=== PATIENT | male | born 1995 | race Caucasian/White ===

== ENCOUNTER 2023-12-03 19:38 | Emergency (ER) | payer MEDICAID ==
[~2023-12-03] VITALS: Ht 172.7 cm; Wt 65.1 kg
[2023-12-03 19:45] VITALS: BP 130/82; PULSE 97; RESP 16; TEMP 98.5; O2SAT 95
== END 2023-12-03 20:17 | disposition left against medical advice (07) ==
LOC: ER 19:38
DX: Z04.6 Encounter for general psychiatric examination, requested by authority (principal); Z53.21 Procedure and treatment not carried out due to patient leaving prior to being seen by health care provider
CPT/HCPCS: 99281

== ENCOUNTER 2025-07-28 09:32 | Emergency (ER) | payer MEDICAID ==
[~2025-07-28] VITALS: Ht 172.7 cm; Wt 79.5 kg
[2025-07-28 09:47] VITALS: BP 161/98; PULSE 87; RESP 18; TEMP 98.7; O2SAT 99
[2025-07-28] MEDS ORDERED: OLAN-40 PO (09:50)
--- NOTE | 2025-07-28 09:51 | Physician Documentation ---
HPI ~ General Chief Complaint: Medication Request Stated Complaint: MED REQUEST Time Seen by MD: 09:46 History of Present Illness HPI Comments 29-year-old male presents to the ED refer medication request. States that he is out of Zyprexa 20 mg. Takes a medication for PTSD and has been unable am unable to get an appointment with a primary. Denies any current SI or HI Medication Reconciliation Allergies: Coded Allergies: No Known Allergies (Unverified , 07/28/25) Scheduled Olanzapine (Zyprexa), 1 TAB PO HS Review of Systems All Other Systems at this time: Reviewed and Negative ROS As stated above in the HPI, otherwise all systems are reviewed and negative. Physical Exam Physical Exam Vital Signs: Temperature: 98.7, Source: Oral, Heart Rate: 87, Respiratory Rate: 18, BP: 161/98, Pulse Oximetry: 99, Weight: 79.500 Oxygen Flow Rate: 0 Physical Exam General: Alert, no apparent distress. Respiratory: Lungs clear, no respiratory distress. Chest: No accessory muscle use. Cardiovascular: Regular rate and rhythm, no murmurs. Gastrointestinal: Soft, nontender, nondistended. Bowels sounds present. Extremities: Normal range of motion, no deformity. Neurologic: Oriented x4. Psychiatric: Normal mood and affect. Skin: Normal color, warm and dry. No edema, no ecchymosis. Progress Results/Orders Results/Orders Vital Signs 07/28/25 09:47 Temp 98.7 Pulse 87 Resp 18 B/P (MAP) 161/98 Pulse Ox 99 O2 Flow Rate 0 Medical Decision Making Additional information obtaine: old records Findings Medications refilled as requested Differential Dx:Considerations: Include: Adverse circumstances, Economic, Psychosocial, Medical services unavail., Medication refill, Medication non- compliance, Other Departure Disposition: HOME / SELF CARE / HOMELESS Impression: Primary Impression: General medical exam Condition: Stable Discharge Instructions: Medicine Refill at the Emergency Department Referrals: NO PRIMARY CARE PROVIDER (PCP) Prescriptions Olanzapine (Zyprexa) 20 Mg Tablet 1 TAB PO HS for 30 Days, #30 TAB 0 Refills Prov: STAN LARES NP 07/28/25 Education Educated: Patient Educated regarding: diagnosis Signature Scribe Signature: g Attestation: Scribed for Stan Lares Levers Lace Machine Operator by Stan Sen NP . 07/28/25 16:05 STAN LARES NP Jul 28, 2025 09:51
== END 2025-07-28 10:03 | disposition home or self-care (01) ==
LOC: ER 09:32
DX: Z00.00 Encounter for general adult medical examination without abnormal findings (principal)
CPT/HCPCS: 99282

== ENCOUNTER 2025-08-04 11:15 | Emergency (ER) | payer MEDICAID ==
[~2025-08-04] VITALS: Ht 172.7 cm; Wt 86.4 kg
[~2025-08-04 11:15] MED LIST: OLAN-40 PO
[2025-08-04 11:27] VITALS: BP 131/82; PULSE 152; RESP 18; TEMP 98.5; O2SAT 99
--- NOTE | 2025-08-04 11:31 | Physician Documentation ---
History of Present Illness ~ Chief Complaint: Flu Symptoms Stated Complaint: CHEST COLD HPI Patient is a very pleasant 29-year-old male that presents to the emergency de partment for complaints of cough cold congestion x1 week. Subsequent finding of tachycardia in triage today. Patient denies fever chills nausea vomiting diarrhea chest pain or shortness of breath at this time. Medication Reconciliation Allergies: Coded Allergies: No Known Allergies (Unverified , 08/04/25) Scheduled Olanzapine (Zyprexa), 1 TAB PO HS Physical Exam Vital Signs: Temperature: 98.5, Source: Temporal, Heart Rate: 152, Respiratory Rate: 18, BP: 131/82, Pulse Oximetry: 99, Weight: 86.360 Oxygen Flow Rate: 0 Progress Results/Orders Results/Orders Vital Signs 08/04/25 11:27 Temp 98.5 Pulse 152 Resp 18 B/P (MAP) 131/82 Pulse Ox 99 O2 Flow Rate 0 Departure Referrals: NO PRIMARY CARE PROVIDER (PCP) GOGO CARRENO Aug 04, 2025 11:31
--- NOTE | 2025-08-04 11:38 | ELECTROCARDIOGRAPH REPORT ---
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
[2025-08-04 13:16] LABS: MEAN PLATELET VOLUME 10.2 FL (7.4-10.4); RED CELL DISTRIBUTION WIDTH 14.9 % (11.5-14.5)
[2025-08-04 13:28] LABS: CREATININE 0.89 MG/DL (0.60-1.10); TOTAL CARBON DIOXIDE 29.3 MMOL/L (24-32); eCRCL 120 ML/MIN; eGFR > 90 ML/MIN
== END 2025-08-04 19:36 | disposition left against medical advice (07) ==
LOC: ER 11:16
DX: R05.9 Cough, unspecified (principal); J00 Acute nasopharyngitis [common cold]; R68.89 Other general symptoms and signs; R00.0 Tachycardia, unspecified; Z79.899 Other long term (current) drug therapy; Z53.21 Procedure and treatment not carried out due to patient leaving prior to being seen by health care provider
CPT/HCPCS: 36415; 80053; 84484; 85025; 93005; 99281

== ENCOUNTER 2025-08-21 13:26 | Emergency (ER) | payer MEDICAID ==
[~2025-08-21] VITALS: Ht 172.7 cm; Wt 81.6 kg
--- NOTE | 2025-08-21 15:40 | RADIOLOGY REPORT ---
CHEST RADIOGRAPH REASON FOR EXAM: Productive cough x3 weeks. COMPARISON: None TECHNIQUE: One view of the chest is provided FINDINGS: The cardiomediastinal silhouette is within normal limits for technique. There is no focal airspace disease. There is no significant pleural effusion. No acute bony abnormality is identified. IMPRESSION: No radiographic evidence of acute cardiopulmonary process.
[2025-08-21 15:59] LABS: STREP A SCREEN NEGATIVE (Neg)
[2025-08-21 16:03] LABS: INFLUENZA TYPE A ANTIGEN RAPID NEGATIVE (Negative); INFLUENZA TYPE B ANTIGEN RAPID NEGATIVE (Negative)
[2025-08-21 16:21] LABS: MEAN PLATELET VOLUME 10.2 FL (7.4-10.4); RED CELL DISTRIBUTION WIDTH 14.0 % (11.5-14.5)
[2025-08-21 16:23] LABS: CREATININE 1.02 MG/DL (0.60-1.10); TOTAL CARBON DIOXIDE 28.1 MMOL/L (24-32); eCRCL 104 ML/MIN; eGFR 87 ML/MIN
--- NOTE | 2025-08-21 17:06 | Physician Documentation ---
History of Present Illness ~ Chief Complaint: Cold, cough & congestion Stated Complaint: COLD SYMPTOMS Time Seen by MD: 14:24 HPI Patient is a very pleasant 29-year-old male that presents to the emergency department for evaluation of productive cough with congestion x3 weeks. Patient reports that he may have had fevers he is on sure it isn't taken his temperature denies chills nausea vomiting diarrhea at this time. Reports congestion in persistent cough with sputum production that is discolored or brownish over the last couple of weeks. Denies any history of asthma COPD patient denies any respiratory difficulty at this time. No other symptoms reported at this time. Medication Reconciliation Allergies: Coded Allergies: No Known Allergies (Unverified , 08/21/25) Scheduled Olanzapine (Zyprexa), 1 TAB PO HS Review of Systems ROS As stated above in the HPI, otherwise all systems are reviewed and negative. Physical Exam Vital Signs: Temperature: 98.7, Source: Oral, Heart Rate: 130, Respiratory Rate: 20, BP: 129/93, Pulse Oximetry: 97, Weight: 81.600 Oxygen Flow Rate: 0 Physical Exam VITALS: Reviewed and as above. GENERAL: Alert, no apparent distress. HEENT: Normocephalic, atraumatic, PERRL, EOMI, dry mucosa, no erythema RESPIRATORY: Lungs clear, normal breath sounds, no respiratory distress, inspiratory expiratory wheezes crackles rales or rhonchi noted on examination. CHEST: No accessory muscle use, no retractions CV: Regular rate, rhythm, no edema, no murmur, No: JVD GI: Soft, non-tender, bowels sounds present, no rebound, guarding, or rigidity BACK: No CVA tenderness, or swelling MUSCULOSKELETAL No deformities, no edema SKIN: Warm and dry, no rash NEURO: Oriented x4, No motor or sensory deficit PSYCH: Normal mood and affect, no agitation Progress Results/Orders Results/Orders Orders - MYRIAM CARRENO Covid19 Binax Poc Result Entry (08/21/25 15:14) Chest,Single View (08/21/25 15:14) Cult Throat + R/O Beta Strep (08/21/25 15:59) Completed Orders - MYRIAM CARRENO Cbc/Diff (08/21/25 15:14) CMP (08/21/25 15:14) Influenza Type A&B Rapid Test (08/21/25 15:14) Strep A Rapid (08/21/25 15:14) Chest,Single View (08/21/25 15:14) Vital Signs 08/21/25 14:13 Temp 98.7 Pulse 130 Resp 20 B/P (MAP) 129/93 Pulse Ox 97 O2 Flow Rate 0 Laboratory Tests Test 08/21/25 15:31 08/21/25 16:02 Influenza Type A Antigen Negative Influenza Type B Antigen Negative SARS-CoV-2 Antigen (Rapid) Negative Group A Streptococcus Rapid Negative White Blood Count 7.0 Red Blood Count 4.04 L Hemoglobin 12.3 L Hematocrit 36.4 L Mean Corpuscular Volume 90.2 Mean Corpuscular Hemoglobin 30.5 Mean Corpuscular Hemoglobin Concent 33.9 Red Cell Distribution Width 14.0 Platelet Count 207 Mean Platelet Volume 10.2 Neutrophils (%) (Auto) 53.9 Lymphocytes (%) (Auto) 32.2 Monocytes (%) (Auto) 12.0 Eosinophils (%) (Auto) 1.2 Basophils (%) (Auto) 0.7 Neutrophils # (Auto) 3.8 Lymphocytes # (Auto) 2.3 Monocytes # (Auto) 0.8 Eosinophils # (Auto) 0.1 Basophils # (Auto) 0.0 CBC Comment Sodium Level 141 Potassium Level 4.5 Chloride Level 105 Carbon Dioxide Level 28.1 Anion Gap 8 Blood Urea Nitrogen 22 H Creatinine 1.02 Estimated GFR/1.73 m2 87 BUN/Creatinine Ratio 21.6 H Glucose Level 120 H Calcium Level 8.5 Total Bilirubin 0.6 Aspartate Amino Transf (AST/SGOT) 37 Alanine Aminotransferase (ALT/SGPT) 18 Alkaline Phosphatase 106 Total Protein 7.6 Albumin 3.9 Globulin 3.7 Albumin/Globulin Ratio 1.1 Chemistry Comments Medical Decision Making Additional information obtaine: other Findings Medical Decision Making Number of Diagnoses/Management Options: Moderate complexity. The patient presents with a three-week history of productive cough with discolored sputum, congestion, and possible subjective fevers. The differential diagnosis included acute bronchitis, pneumonia, influenza, COVID-19, streptococcal pharyngitis, and pertussis. Given the duration of symptoms (three weeks), subacute cough etiologies including postinfectious cough and bacterial sinusitis were also considered.[2] Amount and Complexity of Data Reviewed: Moderate complexity. Laboratory testing was performed and showed no abnormal findings consistent with bacterial infection. Chest X-ray was obtained and demonstrated no evidence of pneumonia or other pulmonary pathology. Rapid testing for influenza A, influenza B, COVID- 19, and streptococcal infection were all negative. The [employer] guidelines suggest no routine investigation for immunocompetent adults with suspected acute bronchitis; however, given the three-week duration and discolored sputum production, targeted investigation was appropriate to exclude pneumonia and other treatable conditions. Risk of Complications: Low. The patient is a 29-year-old immunocompetent male with no history of asthma or COPD and currently denies respiratory difficulty, fever, chills, or systemic symptoms. Vital signs are stable with normal lung examination findings. In the absence of tachycardia, tachypnea, fever, or abnorm al chest examination findings, pneumonia is unlikely. The negative chest radiograph further excludes pneumonia. The clinical presentation is most consistent with acute bronchitis, which is typically viral in etiology and self- limited. Assessment and Plan: The patient has acute bronchitis based on the clinical presentation of productive cough for three weeks with negative testing for bacterial and viral pathogens and normal chest imaging. Per [employer] guidelines, routine antibiotic therapy is not recommended for immunocompetent adults with acute bronchitis, as more than 90% of cases are viral in etiology. The presence of discolored or purulent sputum does not indicate bacterial infection, as purulence results from inflammatory cells and sloughed epithelial cells. The patient was counseled that cough may persist for an additional 10 to 21 days and occasionally longer, which is typical for postinfectious cough. The patient was advised to return for reassessment if symptoms worsen or persist beyond expected timeframes, at which point targeted investigations including repeat chest imaging, sputum culture, or inflammatory markers may be considered. The patient was also instructed to seek immediate care if he develops fever, shortness of breath, chest pain, or other concerning symptoms that might suggest a complicating bacterial infection. Disposition: Discharge home with symptomatic care recommendations and return precautions as above. Differential Dx:Considerations: Include: Allergic rhinitis, Influenza, Otitis media, Peritonsillar abscess, Pharyngitis-Diphtheria, Pharyngitis-Streptoccal, Pharyngitis-Viral, Pneumonia, Pnuemonitis, Sinusitis, URI, Other Departure Disposition: 01 HOME / SELF CARE / HOMELESS Impression: Primary Impression: Acute respiratory infection Condition: Stable Discharge Instructions: Upper Respiratory Infection, Adult, Viral Illness, Adult, Cough, Adult Additional Instructions: Your Diagnosis You were evaluated in the emergency department for a cough and congestion that has lasted for three weeks. After examination, testing, and chest X-ray, you have been diagnosed with acute bronchitis. This is an inflammation of the airways in your lungs, usually caused by a virus (similar to a chest cold). What to Expect Your cough may continue for 2 to 3 weeks or longer, even though you are starting to feel better. The cough may produce discolored or brownish mucus. This is normal and does not mean you have a bacterial infection. Most cases of acute bronchitis get better on their own without antibiotics. Home Care Instructions Rest and drink plenty of fluids to help your body recover. [id number] medications like acetaminophen (Tylenol) or ibuprofen (Advil, Motrin) can help with any discomfort or body aches. Use a humidifier or breathe in steam from a hot shower to help loosen mucus. Avoid smoking and secondhand smoke, as this can make your cough worse and delay healing. What NOT to Do Do not expect antibiotics to help. Your illness is caused by a virus, and antibiotics only work against bacteria. Taking antibiotics when you don't need them can cause side effects and lead to antibiotic resistance. Cough medicines, inhalers, and anti-inflammatory medications have not been shown to help acute bronchitis get better faster. When to Return to the Emergency Department or See Your Doctor Seek medical care right away if you develop any of the following: Fever (temperature over 100.4F or 38C) Shortness of breath or difficulty breathing Chest pain Coughing up blood Symptoms that get worse instead of better Cough that lasts longer than 3 to 4 weeks without improvement If your cough persists or worsens, you may need additional testing to look for other causes. Follow-Up Care Follow up with your primary care doctor within 1 to 2 weeks, or sooner if your symptoms worsen. If you do not have a primary care doctor, please establish care with one. Important Reminders Acute bronchitis usually gets better on its own with time and rest. Be patient with your recoverycoughing for several weeks after a respiratory infection is normal. Wash your hands frequently to prevent spreading the infection to others. Referrals: NO PRIMARY CARE PROVIDER (PCP) Education Educated: Patient Educated regarding: diagnosis, treatment, need for follow up Signature Scribe Signature: A Attestation: Scribed for Myriam Carreno by GAVIN Schmidt . 08/21/25 17:07 MYRIAM CARRENO Aug 21, 2025 17:06
[2025-08-21 17:09] VITALS: BP 136/78; PULSE 93; RESP 16; TEMP 98.7; O2SAT 99
[2025-08-22] MEDS ORDERED: OLAN20TA81 PO (20:43)
[2025-08-22] MEDS ORDERED: OLAN-40 PO (20:50)
== END 2025-08-21 17:14 | disposition home or self-care (01) ==
LOC: ER 13:27
DX: J22 Unspecified acute lower respiratory infection (principal); Z79.899 Other long term (current) drug therapy; Z20.822 Contact with and (suspected) exposure to COVID-19
CPT/HCPCS: 36415; 71045; 80053; 85025; 87081; 87804; 87811; 87880; 99284

== ENCOUNTER 2025-08-22 20:20 | Emergency (ER) | payer MEDICAID ==
[~2025-08-22] VITALS: Ht 172.7 cm; Wt 83.7 kg
[2025-08-22 20:32] VITALS: BP 151/97; PULSE 116; RESP 16; O2SAT 98
[2025-08-22] MEDS ORDERED: OLAN20TA81 PO (20:43)
[2025-08-22] MEDS ORDERED: OLAN-40 PO (20:50)
--- NOTE | 2025-08-22 20:50 | Physician Documentation ---
HPI ~ General Chief Complaint: Medication Request Stated Complaint: MED REQUEST Time Seen by MD: 20:37 Source: patient Mode of Arrival: POV Exam Limitations: no limitations History of Present Illness HPI Comments 29-year-old male currently in rehab at [facility] has been out of his Zyprexa 20 mg at night for almost a week. Requesting medication refills until he can get in to primary care for further refills. No other acute concerns Medication Reconciliation Allergies: Coded Allergies: No Known Allergies (Unverified , 08/22/25) Scheduled Olanzapine (Olanzapine), 1 TAB PO HS, (Reported) Discontinued Medications Olanzapine (Zyprexa), 1 TAB PO HS Discontinued Reason: Out of medication Past Medical History Past Surgical History: noncontributory Lives with: Alone Lives In: Home Occupation: unemployed, disabled Review of Systems All Other Systems at this time: Reviewed and Negative Physical Exam Physical Exam Vital Signs: RN Vital Signs have been reviewed: Yes, Temperature: 100.0, Source: Temporal, Heart Rate: 116, Respiratory Rate: 16, BP: 151/97, Pulse Oximetry: 98, Weight: 83.700 Oxygen Flow Rate: 0 Physical Exam General: Alert, no apparent distress. HEENT: PERRL, EOMI, no injection, moist mucous membranes. Neck: Full range of motion. Respiratory: Lungs clear, no respiratory distress. Chest: No accessory muscle use. Cardiovascular: Regular rate and rhythm, no murmurs. Extremities: Normal range of motion, no deformity. Neurologic: Oriented x4. Psychiatric: Normal mood and affect. Skin: Normal color, warm and dry. No edema, no ecchymosis. Progress Results/Orders Results/Orders Vital Signs 08/22/25 20:32 Temp 100.0 Pulse 116 Resp 16 B/P (MAP) 151/97 Pulse Ox 98 O2 Flow Rate 0 Medical Decision Making Additional information obtaine: N/A Findings Doses Zyprexa given tonight and a medication refill provided for 30 days to follow up when he establishes with primary care. Differential Dx:Considerations: Include: Medication refill Departure Time of Disposition: 20:49 Disposition: 01 HOME / SELF CARE / HOMELESS Impression: Primary Impression: General medical exam Condition: Stable Discharge Instructions: Medical Screening Exam Additional Instructions: Take medication as prescribed Zyprexa 20 mg once at night until you can be seen by primary care or [facility] for further treatment evaluation of refills. Are medically cleared to return to [facility] Referrals: NO PRIMARY CARE PROVIDER (PCP) Prescriptions Olanzapine (Zyprexa) 20 Mg Tablet 1 TAB PO HS for 30 Days, #30 TAB 0 Refills Prov: JENN HAMM NP 08/22/25 Education Educated: Patient Educated regarding: diagnosis, treatment, need for follow up Signature Scribe Signature: No scribe Attestation: The note accurately reflects work and decisions made by me.Jenn Hamm - RESIDENTIAL INTERIOR DESIGNER 08/22/25 20:50 JENN HAMM NP Aug 22, 2025 20:50
[2025-08-22 20:58] VITALS: TEMP 98.8
== END 2025-08-22 21:00 | disposition home or self-care (01) ==
LOC: ER 20:20
DX: Z00.00 Encounter for general adult medical examination without abnormal findings (principal)
CPT/HCPCS: 99283